=== PATIENT | male | born 1985 | race Caucasian/White ===

== ENCOUNTER 2018-01-10 11:15 | Emergency (ER) | payer OTHER ==
[2018-01-10 11:28] VITALS: BP 143/74; PULSE 84; RESP 18; TEMP 98.4; O2SAT 95
--- NOTE | 2018-01-10 11:48 | EDPHY ---
H & P Time Seen by Provider: 01/10/18 11:30 HPI/ROS: Chief Complaint: Anxiety History or Present Illness: This is a 32 year old male who presents to the clinic requesting treatment and referral information for anxiety. He states anxiety is an ongoing issue for him. He does not do well by himself and has been staying with friends. He has tried to find a therapist but has been unsuccessful. He denies associated signs or symptoms. No report of SI or HI. Review of Systems: A 10 point review of systems was obtained and other than described above was negative. Smoking Status: Former smoker Physical Exam: General: Alert, non toxic. Eyes: PERRLA. ENT: Mucous membranes moist. Lungs: CTAB Cardiac: RRR Skin: No rashes Neurological: Alert and oriented X 4. CN 2-12 grossly intact. Strength and sensation intact and symmetrical. Psych: Cooperative. No agitation. Constitutional: Initial Vital Signs Temperature (C) 36.9 C 01/10/18 11:25 Heart Rate 84 01/10/18 11:25 Respiratory Rate 18 01/10/18 11:25 Blood Pressure 143/74 H 01/10/18 11:25 O2 Sat (%) 95 01/10/18 11:25 O2 Delivery Mode Room Air Allergies/Adverse Reactions: No Known Allergies Allergy (Unverified 01/10/18 11:49) Home Medications: Medication Instructions Recorded LORazepam [Ativan] 0.5 mg PO BID #6 tablet 01/10/18 MDM/Departure - [facility] ED Course/Re-evaluation: Patient seen under the supervision of my secondary supervising physician Dr. Tabitha Littlejohn. Patient is appropriate for outpatient care. Patient was given resources for follow up on his anxiety by mental health services. We will treat with a short course of ativan. Return precautions given. Differential Diagnosis: Included but not limited to generalized anxiety, depression, bi polar - Depart Disposition: Home, Routine, Self-Care Clinical Impression: Anxiety Condition: Good Instructions: Anxiety (ED) Additional Instructions: Follow-up with the resources you were given If symptoms worsen or new symptoms develop return to the emergency room for recheck Prescriptions: LORazepam [Ativan] 0.5 mg PO BID #6 tablet Referrals: [facility],. [Clinic] - As per Instructions
== END 2018-01-10 12:00 | disposition home or self-care (01) ==
DX: F41.9 Anxiety disorder, unspecified (principal); Z87.891 Personal history of nicotine dependence